=== PATIENT | female | born 1990 | race Caucasian/White ===

== ENCOUNTER 2016-07-17 17:48 | Emergency (ER) | payer OTHER ==
--- NOTE | ~2016-07-17 | CR243 ---
[facility]. [facility] A Service of [facility] & [facility] RADIOLOGY TEXT RESULTS PATIENT: MALIKA DEEJSUS LOCATION: SED : [birth year] UNIT #: [id number] AGE: [address]: Arlette Corral APRN SEX: F ORDER DR: [id number] [address] [id number] E MR#: [id number] Acc #: [id number] NAME: MALIKA DEJESUS. : 1990 SEX: F STUDY DATE/TIME: 07/17/2016 18:17 UNIT: SED ROOM: STUDY DESCRIPTION: CR Thoracic Spine 3 Views Attending Physician: Arlette Corral A.P.R.N. Ordering Physician: Arlette Corral A.P.R.N. Primary Care Physician: Mehnaz Blanca A.P.R.N. MEDICAL IMAGING REPORT This report is preliminary unless electronic signature is present. EXAM Thoracic spine AP and lateral 3 views HISTORY Back pain for 2 days. No injury. FINDINGS 3 views of the thoracic spine demonstrate right lower thoracic curve measuring 25 degrees at T10. Fixation rods in the mid-upper thoracic spine extend from T4 to T7. No fracture or subluxation. IMPRESSION No acute findings. Right lower thoracic curve measures 25 degrees at T10. Multilevel upper thoracic spinal fusion hardware. No fracture or subluxation. Dictated by... Wellington Edouard M.D. THIS IS AN ELECTRONICALLY VERIFIED REPORT Wellington Edouard M.D. at 07/18/2016 11:29 PM CHIDI/lolly TD: 07/18/2016 01:07 JOB #: [id number] MEDICAL IMAGING REPORT Page 1 of 1
[~2016-07-17 17:48] MED LIST: BENTYL10 MG PO; BENZONATATE PO; CIPRO PO; DICLOFENAC PO; FLEXERIL; FLEXERIL10 M1 PO; FLEXERIL10 MG PO; IBUPROFEN; KEFLEX500 M1 PO; KEFLEX500 MG PO; MACROBID100 M1 PO; NAPROSYN500 MG PO; NO MEDICATIONS; PENTASA250 MG PO; PHENERGAN DM1 ML PO; PHENERGAN PO; PHENERGAN25 M1 PO; PHENERGAN25 MG PO; PRENATAL1 TA1 PO; PRILOSEC20 MG PO; SUDAFED PO; VICODIN 5/1 TAB 5/50 PO; VOLTAREN75 MG PO; ZOFRAN ODT4 MG PO; ZOFRAN ODT4 MG/UDTAB PO; ZOFRAN PO; ZOFRANODT PO; ZYRTEC-D T1 TAB.SR1 PO
[2016-07-17] MEDS ORDERED: NO MEDICATIONS (17:58)
== END 2016-07-17 19:19 | disposition home or self-care (01) ==
LOC: SED 17:48
DX: M62.830 Muscle spasm of back (principal); Z98.890 Other specified postprocedural states; Z88.2 Allergy status to sulfonamides
CPT/HCPCS: 72072; 99283